=== PATIENT | male | born 1980 | race Caucasian/White ===

== ENCOUNTER 2018-12-07 09:30 | Inpatient (IN) | payer OTHER ==
[2018-12-07 12:51] VITALS: BMI 18.8
--- NOTE | 2018-12-07 13:57 | HP ---
COWS - Scale Resting Pulse: 1= [place] 81-100 Sweatin=Flushed/Facial Moisture Restless Observation: 1= Difficult to Sit Still Pupil Size: 0= Normal to Room Light Bone or Joint Aches: 2= Severe Diffuse Aches Runny Nose/ Eye Tearin= Runny Nose/Eyes GI Upset > 30mins: 2= Nausea/Diarrhea Tremor Observation: 2= Slight Tremor Visible Yawning Observation: 2= >3x During Session Anxiety or Irritability: 2=Irritable/Anxious Goose Flesh Skin: 3=Piloerection COWS Score: 19 CIWA Score - Admission Criteria OASAS Guidelines: Admission for Medically Managed Detox: Requires at least one of the followin. CIWA greater than 12 2. Seizures within the past 24 hours 3. Delirium tremens within the past 24 hours 4. Hallucinations within the past 24 hours 5. Acute intervention needed for co occurring medical disorder 6. Acute intervention needed for co occurring psychiatric disorder 7. Severe withdrawal that cannot be handled at a lower level of care (continued vomiting, continued diarrhea, abnormal vital signs) requiring intravenous medication and/or fluids 8. Admission ROS S - HPI Chief Complaint: I am here to get help. I need to get my life together and get clean. Allergies/Adverse Reactions: Allergies Allergy/AdvReac Type Severity Reaction Status Date / Time No Known Allergies Allergy Verified 12/07/18 12:43 History of Present Illness: pt is a 37yr old male with a history of heroin and cocaine dependence seeking treatment. Exam Limitations: No Limitations - Ebola screening Have you traveled outside of the country in the last 21 days: No Have you had contact with anyone from an Ebola affected area: No Do you have a fever: No - Review of Systems Constitutional: Chills, Diaphoresis, Loss of Appetite, Night Sweats, Changes in sleep, Unintentional Wgt. Loss EENT: reports: Tearing, Nose Congestion Respiratory: reports: No Symptoms reported Cardiac: reports: Lightheadedness, Syncope GI: reports: Diarrhea, Nausea, Poor Appetite, Poor Fluid Intake, Indigestion : reports: No Symptoms Reported Musculoskeletal: reports: Back Pain Integumentary: reports: Flushing, Sweating Neuro: reports: Headache, Seizure (last seizure drug related a year ago), Tingling, Tremors Endocrine: reports: Excessive Sweating, Flushing, Intolerance to Heat Hematology: reports: No Symptoms Reported Psychiatric: reports: Judgement Intact, Mood/Affect Appropiate, Orientated x3, Agitated, Anxious Other Systems: Reviewed and Negative Patient History - Patient Medical History Hx Anemia: No Hx Asthma: No Hx Chronic Obstructive Pulmonary Disease (COPD): No Hx Cancer: No Hx Cardiac Disorders: No Hx Congestive Heart Failure: No Hx Hypertension: No Hx Hypercholesterolemia: No Hx Pacemaker: No HX Cerebrovascular Accident: No Hx Seizures: Yes (a year ago drug related) Hx Dementia: No Hx Diabetes: No Hx Gastrointestinal Disorders: No Hx Liver Disease: No Hx Genitourinary Disorders: No Hx Sexually Transmitted Disorders: No Hx Renal Disease (ESRD): No Hx Thyroid Disease: No Hx Human Immunodeficiency Virus (HIV): No Hx Hepatitis C: Yes (not treated) Hx Depression: Yes Hx Suicide Attempt: No (pt denies) Hx Bipolar Disorder: No Hx Schizophrenia: No Other Medical History: insomnia - Patient Surgical History Past Surgical History: No - PPD History Previous Implant?: Yes Documented Results: Negative w/o proof Implanted On Prior [facility] Admission?: No PPD to be Administered?: Yes - Reproductive History Patient is a Female of Child Bearing Age (11 -55 yrs old): No - Smoking Cessation Smoking history: Current every day smoker Have you smoked in the past 12 months: Yes Aproximately how many cigarettes per day: 10 Hx Chewing Tobacco Use: No Initiated information on smoking cessation: Yes 'Breaking Loose' booklet given: 12/07/18 - Substance & Tx. History Hx Alcohol Use: No Hx Substance Use: Yes Substance Use Type: Cocaine, Heroin Hx Substance Use Treatment: Yes (last detox [facility] a year ago) - Substances abused Heroin Substance route: Injection Frequency: Daily Amount used: 2 BUNDLES Age of first use: 25 Date of last use: 12/06/18 Cocaine Substance route: Injection Frequency: Daily Amount used: $60 Age of first use: 25 Date of last use: 12/06/18 Family Disease History - Family Disease History Family Disease History: Diabetes: Grandparent, Mother Admission Physical Exam [facility] - Vital Signs Vital Signs: Vital Signs - 24 hr 12/07/18 12:37 Temperature 98.6 F Pulse Rate 85 Respiratory 20 Rate Blood Pressure 111/74 - Physical General Appearance: Yes: Appropriately Dressed, Moderate Distress, Thin, Tremorous, Irritable, Sweating, Anxious HEENTM: Yes: Hearing grossly Normal, Normal Voice Respiratory: Yes: Lungs Clear, Normal Breath Sounds, No Respiratory Distress Neck: Yes: No masses,lesions,Nodules Breast: Yes: Within Normal Limits Cardiology: Yes: Regular Rhythm, Regular Rate, S1, S2 Abdominal: Yes: Normal Bowel Sounds, Non Tender Genitourinary: Yes: Within Normal Limits Back: Yes: Normal Inspection Musculoskeletal: Yes: full range of Motion, Back pain Extremities: Yes: Normal Capillary Refill, Non-Tender, Tremors Neurological: Yes: Fully Oriented, Alert, Normal Response Integumentary: Yes: Normal Color, Track Winters Lymphatic: Yes: Within Normal Limits - Diagnostic (1) Opioid dependence with withdrawal Current Visit: Yes Status: Chronic (2) Nicotine dependence Current Visit: Yes Status: Chronic Qualifiers: Nicotine product type: cigarettes Substance use status: uncomplicated Qualified Code(s): F17.210 - Nicotine dependence, cigarettes, uncomplicated Cleared for Admission [facility] - Detox or Rehab [facility] Level of Care: Medically Managed Detox Regimen/Protocol: Methadone Breathalyzer - Breathalyzer Breathalyzer: 0 Urine Drug Screen - Test Device Lot number: [id number] Expiration date: 08/16/20 - Control Is test valid?: Yes - Results Drug screen NEGATIVE: No Urine drug screen results: THC-Marijuana, RADHA-Cocaine, MOP-Opiates Inpatient Rehab Admission - Rehab Decision to Admit Inpatient rehab admission?: No
[2018-12-07] MEDS ORDERED: MAGNESIUM CITRATE 300 ML BOTTLE PO PRN (14:28)
[2018-12-07] MEDS ORDERED: IBUPROFEN 400 MG TABLET (FP) PO PRN (14:28)
[2018-12-07] MEDS ORDERED: ONDANSETRON *ODT* 4 MG TABLET SL PRN (14:28)
[2018-12-07] MEDS ORDERED: ACETAMINOPHEN 325 MG TABLET (FP) PO PRN ×2 (14:28)
[2018-12-07] MEDS ORDERED: BISMUTH SUBSALICYLATE 524 MG/30 ML UD PO PRN (14:28)
[2018-12-07] MEDS ORDERED: hydrOXYzine PAMOATE 25 MG CAPSULE (FP) PO PRN (14:28)
[2018-12-07] MEDS ORDERED: NICOTINE POLACRILEX 4 MG GUM BUC PRN (14:28)
[2018-12-07] MEDS ORDERED: cloNIDine HCL 0.1 MG TABLET PO PRN (14:28)
[2018-12-07] MEDS ORDERED: MAGNESIUM HYDROX 2400MG/30ML ORAL SUSPENSION 30 ML CUP PO PRN (14:28)
[2018-12-07] MEDS ORDERED: clonazePAM 0.5 MG TABLET PO PRN (14:28)
[2018-12-07] MEDS ORDERED: MENTHOL/PHENOL 1 EACH UD MM PRN (14:28)
[2018-12-07] MEDS ORDERED: METHOCARBAMOL 500 MG TABLET PO PRN (14:28)
[2018-12-07] MEDS ORDERED: P-EPHED 60MG/TRIPROLIDI 2.5MG TABLET PO PRN (14:28)
[2018-12-07] MEDS ORDERED: DICYCLOMINE HCL 10 MG CAPSULE PO PRN (14:28)
[2018-12-07] MEDS ORDERED: MAG HYDROX/AL HYDROX/SIMETH 30 ML UNIT-DOSE CUP PO PRN (14:28)
[2018-12-07] MEDS ORDERED: METHADONE HCL 10 MG TABLET (FOR DETOX USE ONLY) PO ONE ×2 (16:00→23:00)
[2018-12-07 16:01] LABS: HEMATOCRIT 37.6 % (35.4-49); HEMOGLOBIN 12.2 GM/dL (11.7-16.9); MCH 24.4 pg (25.7-33.7); MCHC 32.5 g/dl (32.0-35.9); MEAN CELL VOLUME 75.1 fl (80-96); MEAN PLT VOLUME 9.6 fl (7.5-11.1); PLATELET COUNT 148 K/MM3 (134-434); RBC 5.01 M/mm3 (4.00-5.60); WHITE BLOOD COUNT 4.9 K/mm3 (4.0-10.0)
--- NOTE | 2018-12-07 16:05 | CONSULT ---
[facility] Psychiatric Consult - Data Date of interview: 12/07/18 Admission source: [facility] Identifying data: First admission to [facility] for this 37 y/o male self-referred for detoxification (cocaine, heroin, nicotine). Examined at [address] [place] [address]. Patient is single, a father of one, homeless, unemployed and supported by friends/relatives. Substance Abuse History: Discussed in this interview. patiennt confirms the use of heroin and crack/cocaine. Details in current [facility] report as follows : Smoking history: Current every day smoker. Have you smoked in the past 12 months: Yes. Aproximately how many cigarettes per day: 10. Hx Chewing Tobacco Use: No. Initiated information on smoking cessation: Yes. 'Breaking Loose' booklet given : 12/07/18. - Substance & Tx. History. Hx Alcohol Use: No. Hx Substance Use: Yes. Substance Use Type: Cocaine, Heroin. Hx Substance Use Treatment: Yes ( last detox [facility] a year ago). - Substances abused. Heroin. Substance route: Injection. Frequency: Daily. Amount used: 2 BUNDLES. Age of first use : 25. Date of last use: 12/06/18. Cocaine. Substance route: Injection. Frequency: Daily. Amount used: $60. Age of first use: 25. Date of last use: 12/06/18 Medical History: Medical profile is remarkable for hepatitis C and a history of withdrawal-related seizures. No reported allergies. Psychiatric History: Patient denies history of psychiatric hospitalizations, OPD care or suicide attempts. Mr Thomas reports taking diazepam prescribed by a primary care provider. Physical/Sexual Abuse/Trauma History: Patient denies history of abuse. Additional Comment: Urine drug screen results: THC-Marijuana, RADHA-Cocaine, MOP- Opiates. Noted. Mental Status Exam - Mental Status Exam Alert and Oriented to: Time, Place, Person Cognitive Function: Good Patient Appearance: Unkempt, Disheveled Mood: Withdrawn, Apprehensive Affect: Appropriate, Normal Range Patient Behavior: Fatigued, Cooperative Speech Pattern: Clear, Appropriate Voice Loudness: Normal Thought Process: Goal Oriented Thought Disorder: Not Present Hallucinations: Denies Suicidal Ideation: Denies Homicidal Ideation: Denies Insight/Judgement: Poor Sleep: Poorly, Difficulty falling asleep (wants trazodone) Appetite: Good (observed eating his meal) Muscle strength/Tone: Normal Gait/Station: Normal Psychiatric Findings - Problem List ([place] 1, 2,3) (1) Opioid dependence with withdrawal Current Visit: Yes Status: Acute (2) Nicotine dependence Current Visit: Yes Status: Chronic Qualifiers: Nicotine product type: cigarettes Substance use status: uncomplicated Qualified Code(s): F17.210 - Nicotine dependence, cigarettes, uncomplicated (3) Cocaine dependence Current Visit: Yes Status: Chronic (4) Insomnia Current Visit: Yes Status: Chronic - Initial Treatment Plan Initial Treatment Plan: Psychoeducation. Sleep hygiene. Detoxification. AA/NA meetings. Groups. Patient will be educated about MAT interventions for relapse prevention. Trazodone 100 mg po hs. Ordered at patient's request. Made aware of the risk of priapism. Mr Thomas is agreeable with this plan of care. Verbal consent given to MD. Patino.
[2018-12-07 16:21] LABS: ALBUMIN 3.5 g/dl (3.4-5.0); BILIRUBIN,TOTAL 0.5 mg/dL (0.2-1); BLOOD UREA NITROGEN 11.9 mg/dL (7-18); CALCIUM 8.7 mg/dL (8.5-10.1); CREATININE 0.8 mg/dL (0.55-1.3); TOT PROT 7.3 g/dl (6.4-8.2)
[2018-12-07] MEDS: THIAMINE HCL 100 MG TABLET (FP) PO SCH (22:52)
[2018-12-07] MEDS: MELATONIN 5 MG TABLETS PO PRN (22:52)
[2018-12-08] MEDS ORDERED: METHADONE HCL 10 MG TABLET (FOR DETOX USE ONLY) PO ONE (10:00)
--- NOTE | 2018-12-08 10:45 | PN ---
S COWS - Scale Resting Pulse: 0= [place] 80 or Below Sweatin= Chills/Flushing Restless Observation: 1= Difficult to Sit Still Pupil Size: 0= Normal to Room Light Bone or Joint Aches: 2= Severe Diffuse Aches Runny Nose/ Eye Tearin= None GI Upset > 30mins: 0= None Tremor Observation of Outstretched Hands: 2= Slight Tremor Visible Yawning Observation: 2= >3x During Session Anxiety or Irritability: 2=Irritable/Anxious Goose Flesh Skin: 0=Smooth Skin COWS Score: 10 S Progress Note (SOAP) Subjective: c/o headache, shakes, chills, and irritability. Objective: 12/08/18 10:44 Vital Signs - 24 hr 12/07/18 12/07/18 12/07/18 12:37 15:55 18:06 Temperature 98.6 F 98.6 F 97.9 F Pulse Rate 85 60 65 Respiratory 20 18 16 Rate Blood Pressure 111/74 119/72 102/65 12/07/18 12/08/18 12/08/18 22:41 01:36 03:53 Temperature 98.3 F Pulse Rate 54 L Respiratory 16 18 18 Rate Blood Pressure 96/64 12/08/18 12/08/18 06:34 09:52 Temperature 97.1 F L 98.7 F Pulse Rate 66 82 Respiratory 18 20 Rate Blood Pressure 107/67 112/74 Lab Results WBC 4.9 K/mm3 (4.0-10.0) 12/07/18 15:00 RBC 5.01 M/mm3 (4.00-5.60) 12/07/18 15:00 Hgb 12.2 GM/dL (11.7-16.9) 12/07/18 15:00 Hct 37.6 % (35.4-49) 12/07/18 15:00 MCV 75.1 fl (80-96) L 12/07/18 15:00 MCHC 32.5 g/dl (32.0-35.9) 12/07/18 15:00 RDW 18.0 % (11.9-15.9) H 12/07/18 15:00 Plt Count 148 K/MM3 (134-434) 12/07/18 15:00 Sodium 140 mmol/L (136-145) 12/07/18 15:00 Potassium 4.0 mmol/L (3.5-5.1) 12/07/18 15:00 Chloride 109 mmol/L (98-107) H 12/07/18 15:00 Carbon Dioxide 23 mmol/L (21-32) 12/07/18 15:00 Anion Gap 8 MMOL/L (8-16) 12/07/18 15:00 BUN 11.9 mg/dL (7-18) 12/07/18 15:00 Creatinine 0.8 mg/dL (0.55-1.3) 12/07/18 15:00 Random Glucose 94 mg/dL (74-106) 12/07/18 15:00 Calcium 8.7 mg/dL (8.5-10.1) 12/07/18 15:00 Labs noted. Assessment: 12/08/18 10:45 AOX3, in no acute distress. Full rom, ambulates in the unit. withdrawal signs Plan: continue detox.
[2018-12-08] MEDS: PRENATAL VITAMINS W/ FOLIC ACID TABLET (FP) PO SCH (10:46)
[2018-12-08] MEDS: NICOTINE 21 MG/24 HOURS TOPICAL PATCH TD SCH (10:46)
--- NOTE | 2018-12-08 12:38 | EKG ---
Test Reason : Blood Pressure : / mmHG Vent. Rate : 067 BPM Atrial Rate : 067 BPM P-R Int : 132 ms QRS Dur : 092 ms QT Int : 388 ms P-R-T Axes : -29 049 040 degrees QTc Int : 409 ms ECTOPIC ATRIAL RHYTHM NO PREVIOUS ECGS AVAILABLE Confirmed by MIRANDA KRISHNAN MD ([id number]) on 12/08/2018 12:38:12 PM Referred By: Confirmed By:MIRANDA KRISHNAN MD
[2018-12-08] MEDS: THIAMINE HCL 100 MG TABLET (FP) PO SCH (22:41)
[2018-12-08] MEDS: MELATONIN 5 MG TABLETS PO PRN (22:42)
[2018-12-09] MEDS ORDERED: METHADONE HCL 10 MG TABLET (FOR DETOX USE ONLY) PO ONE (10:00)
[2018-12-09] MEDS: NICOTINE 21 MG/24 HOURS TOPICAL PATCH TD SCH (10:39)
[2018-12-09] MEDS: PRENATAL VITAMINS W/ FOLIC ACID TABLET (FP) PO SCH (10:39)
[2018-12-09] MEDS: MELATONIN 5 MG TABLETS PO PRN (22:52)
[2018-12-09] MEDS: THIAMINE HCL 100 MG TABLET (FP) PO SCH (22:52)
[2018-12-10] MEDS ORDERED: METHADONE HCL 10 MG TABLET (FOR DETOX USE ONLY) PO ONE (10:00)
[2018-12-10] MEDS: PRENATAL VITAMINS W/ FOLIC ACID TABLET (FP) PO SCH (10:26)
[2018-12-10] MEDS: NICOTINE 21 MG/24 HOURS TOPICAL PATCH TD SCH (10:26)
--- NOTE | 2018-12-10 15:47 | PN ---
BHS COWS - Scale Resting Pulse: 1= [place] 81-100 Sweatin= Chills/Flushing Restless Observation: 1= Difficult to Sit Still Pupil Size: 0= Normal to Room Light Bone or Joint Aches: 2= Severe Diffuse Aches Runny Nose/ Eye Tearin= None GI Upset > 30mins: 0= None Tremor Observation of Outstretched Hands: 0= None Yawning Observation: 1= 1-2x During Session Anxiety or Irritability: 2=Irritable/Anxious Goose Flesh Skin: 0=Smooth Skin COWS Score: 8 BHS Progress Note (SOAP) Subjective: Interrupted Sleep, Body Aches. Objective: PATIENT A & O X 3, OBSERVED AMBULATING ON UNIT UNASSISTED. IN NO ACUTE DISTRESS. 12/10/18 15:46 Vital Signs Temperature 99.1 F 12/10/18 13:17 Pulse Rate 98 H 12/10/18 13:17 Respiratory Rate 18 12/10/18 13:17 Blood Pressure 113/70 12/10/18 13:17 O2 Sat by Pulse Oximetry (%) Laboratory Tests 12/07/18 12/07/18 12/07/18 15:00 15:00 15:00 WBC 4.9 RBC 5.01 Hgb 12.2 Hct 37.6 MCV 75.1 L MCH 24.4 L MCHC 32.5 RDW 18.0 H Plt Count 148 MPV 9.6 Sodium 140 Potassium 4.0 Chloride 109 H Carbon Dioxide 23 Anion Gap 8 BUN 11.9 Creatinine 0.8 Est GFR (CKD-EPI)AfAm 132.27 Est GFR (CKD-EPI)NonAf 114.12 Random Glucose 94 Calcium 8.7 Total Bilirubin 0.5 AST 21 ALT 23 Alkaline Phosphatase 100 Total Protein 7.3 Albumin 3.5 RPR Titer Nonreactive LABS NOTED. Assessment: 12/10/18 15:47 WITHDRAWAL SYMPTOMS. Plan: CONTINUE DETOX. PATIENT SCHEDULED FOR D/C TOMORROW.
[2018-12-10] MEDS: MELATONIN 5 MG TABLETS PO PRN (22:50)
[2018-12-10] MEDS: THIAMINE HCL 100 MG TABLET (FP) PO SCH (22:50)
[2018-12-11] MEDS ORDERED: METHADONE HCL 5 MG TABLET (FOR DETOX USE ONLY) PO ONE (06:00)
[2018-12-11 09:29] VITALS: BP 104/66; PULSE 97; TEMP 97.5
[2018-12-11] MEDS: PRENATAL VITAMINS W/ FOLIC ACID TABLET (FP) PO SCH (10:14)
[2018-12-11] MEDS: NICOTINE 21 MG/24 HOURS TOPICAL PATCH TD SCH (10:38)
--- NOTE | 2018-12-11 16:47 | DS ---
[facility] Detox Discharge Summary Admission Date: 12/07/18 Discharge Date: 12/11/18 - History Present History: Cocaine Dependence, Opioid Dependence Additional Comments: PATIENT GOING TO [facility] ([place], [place]) FOR AFTERCARE. PATIENT WAS DISCHARGED FORM DETOX UNIT IN STABLE MEDICAL CONDITION. Pertinent Past History: Hep C, Depression, Nicotine Dependence, Insomnia, History Of Seizures (Drug- Related). - Physical Exam Results Vital Signs: Vital Signs Temperature 97.5 F L 12/11/18 09:29 Pulse Rate 97 H 12/11/18 09:29 Respiratory Rate 18 12/11/18 09:29 Blood Pressure 104/66 12/11/18 09:29 O2 Sat by Pulse Oximetry (%) Pertinent Admission Physical Exam Findings: WITHDRAWAL SYMPTOMS. Laboratory Tests 12/07/18 12/07/18 12/07/18 15:00 15:00 15:00 WBC 4.9 RBC 5.01 Hgb 12.2 Hct 37.6 MCV 75.1 L MCH 24.4 L MCHC 32.5 RDW 18.0 H Plt Count 148 MPV 9.6 Sodium 140 Potassium 4.0 Chloride 109 H Carbon Dioxide 23 Anion Gap 8 BUN 11.9 Creatinine 0.8 Est GFR (CKD-EPI)AfAm 132.27 Est GFR (CKD-EPI)NonAf 114.12 Random Glucose 94 Calcium 8.7 Total Bilirubin 0.5 AST 21 ALT 23 Alkaline Phosphatase 100 Total Protein 7.3 Albumin 3.5 RPR Titer Nonreactive LABS NOTED. - Treatment Hospital Course: Detox Protocol Followed, Detoxed Safely, Responded well, Discharged Condition Good, Rehab Referral Accepted Patient has Accepted a Rehab Referral to: [facility] ([place], [place] ). - Medication Discharge Medications: Ambulatory Orders NK [No Known Home Medication] 12/07/18 - Diagnosis (1) Opioid dependence with withdrawal Status: Acute (2) Cocaine dependence Status: Chronic Qualifiers: Substance use status: in withdrawal Qualified Code(s): F14.23 - Cocaine dependence with withdrawal (3) Insomnia Status: Chronic Qualifiers: Insomnia type: unspecified Qualified Code(s): G47.00 - Insomnia, unspecified (4) Nicotine dependence Status: Chronic Qualifiers: Nicotine product type: cigarettes Substance use status: uncomplicated Qualified Code(s): F17.210 - Nicotine dependence, cigarettes, uncomplicated - AMA Did Patient Leave Against Medical Advice: No
== END 2018-12-11 10:55 | disposition home or self-care (01) | DRG 773 ==
LOC: YASAS 09:30 → Y3N 15:28
PROVIDERS: ADMIT Surgery; ATTEND Surgery
PROC: HZ2ZZZZ Detoxification Services for Substance Abuse Treatment (ICD-10-PCS; principal; 2018-12-07)
DX: F11.23 Opioid dependence with withdrawal (principal); F14.20 Cocaine dependence, uncomplicated; F17.210 Nicotine dependence, cigarettes, uncomplicated; G47.00 Insomnia, unspecified; B18.2 Chronic viral hepatitis C; Z86.69 Personal history of other diseases of the nervous system and sense organs
CPT/HCPCS: 36415; 80053; 85027; 86593; 93005; 93010